=== PATIENT | male | born 1980 | race Caucasian/White ===

== ENCOUNTER 2024-05-27 20:13 | Emergency (ER) | payer OTHER, BC ==
[2024-05-27 21:41] VITALS: BP 160/109; PULSE 84; RESP 18; TEMP 98.8; BMI 42.5
[2024-05-27] MEDS: SODIUM CHLORIDE 1,000 ML IV ONE (22:20)
[2024-05-27] MEDS ORDERED: HYDROmorphone HCL/PF 1 MG/ML VIAL ONE (22:29)
[2024-05-27] MEDS: HYDROmorphone HCl 2 MG/ML VIAL IVPUSH STA (22:30)
[2024-05-27] MEDS: ACETAMINOPHEN 1000 MG/100 ML BAG IVPB ONE (22:50)
[2024-05-27] MEDS ORDERED: PIPERACILLIN/TAZOBACTAM 4.5 GM VIAL IVPB ONE (22:52)
[2024-05-27 22:55] LABS: HEMATOCRIT 47.9 % (35.4-49); MCH 23.9 pg (25.7-33.7); MCHC 31.3 g/dl (32.0-35.9); MEAN CELL VOLUME 76.2 fl (80-96); MEAN PLT VOLUME 7.9 fl (7.5-11.1); PLATELET COUNT 215.2 10^3/uL (134-434); RBC 6.29 10^6/uL (4.00-5.60); RDW 17.1 % (11.9-15.9); WHITE BLOOD COUNT 7.3 10^3/uL (4.0-10.8)
[2024-05-27] MEDS: PIPERACILLIN/TAZOB 4.5 GM 4.5 GM in DEXTROSE 5%-WATER 100 ML IVPB ONE (22:58)
[2024-05-27 23:15] LABS: EPITHELIAL CELLS 0-5 /hpf
[2024-05-27 23:24] LABS: ALBUMIN 4.3 g/dl (3.4-5.0); ALK PHOS 80 U/L (45-117); ANION GAP 9 mmol/L (4-13); BILIRUBIN,TOTAL 0.5 mg/dl (0.2-1); CALCIUM 9.5 mg/dl (8.5-10.1); CHLORIDE 103 mmol/L (98-107); CO2 25 mmol/L (21-32); CREATININE 1.3 mg/dl (0.6-1.3); GLUCOSE,RANDOM 94 mg/dl (74-106); MAGNESIUM 1.7 mg/dL (1.8-2.4); SGOT/AST 31 U/L (15-37); SGPT/ALT 40 U/L (7-52); SODIUM 137 mmol/L (136-145); TOT PROT 7.1 g/dl (6.4-8.2)
[2024-05-28] MEDS ORDERED: HYDROmorphone HCL/PF 1 MG/ML VIAL ONE ×2 (00:03→01:33)
[2024-05-28] MEDS: HYDROmorphone HCl 2 MG/ML VIAL IVPUSH STA ×2 (00:10→01:42)
== END 2024-05-28 01:49 | disposition home or self-care (01) ==
LOC: FER 20:13
PROC: 3E03329 Introduction of Other Anti-infective into Peripheral Vein, Percutaneous Approach (ICD-10-PCS; principal; 2024-05-27)
PROC: 3E033NZ Introduction of Analgesics, Hypnotics, Sedatives into Peripheral Vein, Percutaneous Approach (ICD-10-PCS; 2024-05-27)
PROC: 3E033NZ Introduction of Analgesics, Hypnotics, Sedatives into Peripheral Vein, Percutaneous Approach (ICD-10-PCS; 2024-05-27)
PROC: 3E0337Z Introduction of Electrolytic and Water Balance Substance into Peripheral Vein, Percutaneous Approach (ICD-10-PCS; 2024-05-27)
PROC: 3E033NZ Introduction of Analgesics, Hypnotics, Sedatives into Peripheral Vein, Percutaneous Approach (ICD-10-PCS; 2024-05-28)
DX: R10.84 Generalized abdominal pain (principal); K50.90 Crohn's disease, unspecified, without complications
CPT/HCPCS: 36415; 71045-TC-FY; 74176-TC; 80053; 81003; 81015; 83735; 85027; 99285-25

== ENCOUNTER 2024-07-19 19:44 | Emergency (ER) | payer BC ==
[2024-07-19 19:57] VITALS: BP 148/96; PULSE 102; RESP 18; TEMP 98.2; BMI 42.5
[2024-07-19 20:57] LABS: EPITHELIAL CELLS 0-5 /hpf
[2024-07-19] MEDS: SODIUM CHLORIDE 1,000 ML IV ONE (21:15)
[2024-07-19] MEDS ORDERED: HYDROmorphone HCL/PF 1 MG/ML VIAL ONE ×2 (21:16→23:38)
[2024-07-19] MEDS: HYDROmorphone HCl 2 MG/ML VIAL IVPUSH STA ×2 (21:22→23:45)
== END 2024-07-19 23:59 | disposition home or self-care (01) ==
LOC: FER 19:44
PROC: 3E033NZ Introduction of Analgesics, Hypnotics, Sedatives into Peripheral Vein, Percutaneous Approach (ICD-10-PCS; principal; 2024-07-19)
PROC: 3E033NZ Introduction of Analgesics, Hypnotics, Sedatives into Peripheral Vein, Percutaneous Approach (ICD-10-PCS; 2024-07-19)
PROC: 3E0337Z Introduction of Electrolytic and Water Balance Substance into Peripheral Vein, Percutaneous Approach (ICD-10-PCS; 2024-07-19)
DX: M54.50 Low back pain, unspecified (principal); R10.32 Left lower quadrant pain
CPT/HCPCS: 74176-TC; 81003; 81015; 99284-25

== ENCOUNTER 2025-06-01 19:06 | Emergency (ER) | payer BC ==
[2025-06-01 19:13] VITALS: BP 122/72; PULSE 98; RESP 16; TEMP 98.6; BMI 43.8
[2025-06-01] MEDS ORDERED: ACETAMINOPHEN INJECTION 100 ML ONE (20:07)
[2025-06-01] MEDS: SODIUM CHLORIDE 1,000 ML IV STA (20:08)
[2025-06-01] MEDS: ACETAMINOPHEN 1000 MG/100 ML BAG IVPB ONE (20:08)
[2025-06-01 20:21] LABS: ABSOLUTE IMMATURE GRANULOCYTES 0.02 x10^3/uL (0.0-0.031); BASOPHILS # 0.03 x10^3/uL (0.01-0.08); EOSINOPHIL % 0.7 % (0.8-7.0); EOSINOPHILS # 0.05 x10^3/uL (0.04-0.54); MCHC 29.7 g/dl (32.3-36.5); MEAN CELL VOLUME 72.3 fl (79.0-92.2); MEAN PLT VOLUME 9.5 fl (9.4-12.4); MONOCYTE # 0.52 x10^3/uL (0.30-0.82); MONOCYTE % 7.4 % (5.3-12.2); RDW 16.0 % (12.1-15.9)
[2025-06-01 20:35] LABS: ALK PHOS 76.0 U/L (45-117); CO2 26.0 mmol/L (21-32); CREATININE 1.1 mg/dl (0.6-1.3); GLUCOSE,RANDOM 87.0 mg/dl (74-106); SGOT/AST 22.0 U/L (15-37); SGPT/ALT 25.0 U/L (7-52); TOT PROT 7.1 g/dl (6.4-8.2)
[2025-06-01] MEDS ORDERED: HYDROmorphone HCL/PF 1 MG/ML VIAL ONE ×2 (21:00→22:40)
[2025-06-01 21:45] LABS: HIV INTERPRETATION NEGATIVE (NEGATIVE)
[2025-06-01 21:46] LABS: HCV DIAGNOSTIC IN-HOUSE W/RFLX NON-REACTIVE (NONREACTIVE)
== END 2025-06-01 22:49 | disposition home or self-care (01) ==
LOC: FER 19:06
PROC: 3E033NZ Introduction of Analgesics, Hypnotics, Sedatives into Peripheral Vein, Percutaneous Approach (ICD-10-PCS; principal; 2025-06-01)
PROC: 3E033NZ Introduction of Analgesics, Hypnotics, Sedatives into Peripheral Vein, Percutaneous Approach (ICD-10-PCS; 2025-06-01)
PROC: 3E033NZ Introduction of Analgesics, Hypnotics, Sedatives into Peripheral Vein, Percutaneous Approach (ICD-10-PCS; 2025-06-01)
PROC: 3E0337Z Introduction of Electrolytic and Water Balance Substance into Peripheral Vein, Percutaneous Approach (ICD-10-PCS; 2025-06-01)
DX: R10.9 Unspecified abdominal pain (principal)
CPT/HCPCS: 36415; 74177-TC; 80053; 83690; 85025; 86803; 87389; 99285-25; Q9967